=== PATIENT | male | born 1980 | race Caucasian/White ===

== ENCOUNTER 2024-07-12 12:35 | Emergency (ER) | payer OTHER, BC ==
[~2024-07-12] VITALS: Ht 170.2 cm; Wt 74.8 kg
[2024-07-12 12:37] VITALS: BP 98/67; TEMP 98
[2024-07-12] MEDS ORDERED: IBUP-1957 PO (13:43)
[2024-07-12] MEDS ORDERED: CYCL15CA23 PO (13:43)
[2024-07-12] MEDS ORDERED: CYCLOBENZAPRINE 10 MG TABLET ONE (13:56)
[2024-07-12] MEDS ORDERED: IBUPROFEN 600 MG TABLET ONE (13:56)
[2024-07-12] MEDS: IBUPROFEN 600 MG TABLET PO ONE (14:05)
[2024-07-12] MEDS: CYCLOBENZAPRINE 10 MG TABLET PO ONE (14:05)
[2024-07-12 14:07] VITALS: O2SAT 98
== END 2024-07-12 14:08 | disposition home or self-care (01) ==
LOC: ER 12:37
DX: S13.4XXA Sprain of ligaments of cervical spine, initial encounter (principal); M25.511 Pain in right shoulder; Z79.1 Long term (current) use of non-steroidal anti-inflammatories (NSAID); V43.52XA Car driver injured in collision with other type car in traffic accident, initial encounter; Y93.89 Activity, other specified; Y92.488 Other paved roadways as the place of occurrence of the external cause; Y99.8 Other external cause status
CPT/HCPCS: 72040-TC; 73030-TC